=== PATIENT | male | born 1970 | race Caucasian/White ===

== ENCOUNTER → 2021-10-22 09:01 | Outpatient (BNVA) | payer OTHER, SELFPAY | PROVIDERS: PCP Internal Medicine; Visit Provider Psychiatry & Neurology Neurology | DX: G47.9 Sleep disorder, unspecified (principal); R06.83 Snoring; G89.29 Other chronic pain; M54.2 Cervicalgia; R20.2 Paresthesia of skin; M48.00 Spinal stenosis, site unspecified; E66.9 Obesity, unspecified | CPT/HCPCS: 99212 ==

== ENCOUNTER 2021-12-10 09:26 | Outpatient (REF) | payer OTHER, SELFPAY ==
--- NOTE | 2021-12-10 09:30 | EMG_ITS ---
Bilateral median and ulnar motor and sensory studies were performed. Bilateral radial sensory studies were performed and paraspinal muscles were tested with a needle. IMPRESSION: 1. Mild left median neuropathy across carpal tunnel, the right was within normal limits. 2. Mild left ulnar neuropathy across cubital tunnel, the right was normal. 3. Chronic left lower cervical radiculopathy. MD ADRIENNE Webb/CIRILO / [id number]
== END 2021-12-10 09:27 | disposition home or self-care (01) ==
LOC: HO.NEURO 09:26
PROVIDERS: Visit Provider Psychiatry & Neurology Neurology
DX: G89.29 Other chronic pain (principal); M48.00 Spinal stenosis, site unspecified; M54.2 Cervicalgia; R20.2 Paresthesia of skin
CPT/HCPCS: 95886; 95911

== ENCOUNTER 2025-03-20 10:37 | Outpatient (AMB) | payer OTHER, SELFPAY ==
[2025-03-20 11:18] VITALS: BP 129/82; PULSE 81; RESP 18; O2SAT 97; BMI 33.5
--- NOTE | 2025-03-20 11:18 | MHC.OFFVIS ---
Vital Signs 03/20/25 11:18 Height 5 ft 9 in Weight 227 lb BMI 33.5 BP 129/82 Blood Pressure Location Lt brachial Position Sitting Respiration 18 Pulse 81 Pulse Source Pulse Oximeter Pulse Oximetry (%) 97 Oxygen Delivery Method Room Air Intake Visit Reasons: Cervical spondylosis Medical Records Analyst Required: No Allergies aspirin Allergy (Verified 03/20/25 11:20) palpatation HPI Comments Details: Dhaval is very pleasant 54 years old gentleman who presents in my office with complains on severe pain in the left side of his neck and severe pain on the left side of his lower back. He reports that this pain started many years ago. For the cervical pain he went for surgery with Dr. Addie Gutierrez who performed ACDF of unknown level of this patient. Denies any help from this surgery. He received multiple injections in his lower back he does not know the nature of the injections they were 4 years ago. They also tried spinal cord stimulator on this patient [employer] model and they were not significantly helpful for his pain. Because of his pain he can not sleep normally can not do activities of daily living he can not take care of himself but he can not function normally. He is on permanent disability. He is ranging his pain 4 to 8/10 6 to 10/10 in the lower back. He completed his last session of physical therapy 3 weeks ago. He continues home exercise program. He denies any help from physical therapy. He had 12 sessions of physical therapy. He also tried chiropractic manipulations without help massage therapy without help acupuncture without help and 10s units without help. She had images of the cervical spine demonstrating spondylosis of the cervical spine and postlaminectomy syndrome of the cervical spine. His past medical history significant for headaches. His past surgical history significant for gastric bypass surgery. He also had ACDF as described above. He denies smoking cigarettes denies drinking alcohol he drinks caffeinated beverages 2-3 cups a day and he denies recreational drugs. [facility] Medical History (Updated 03/20/25 @ 12:09 by Yair Valdez MD) Accident while engaged in work-related activity Hyperlipidemia Obesity Spinal stenosis Depression Back pain Chronic neck pain Surgical History (Updated 11/03/21 @ 10:43 by Dorinda Nevarez) S/P gastric sleeve procedure History of ankle surgery H/O neck surgery Hx of cholecystectomy Family History (System 11/03/21 @ 10:43 by Dorinda Nevarez) Mother Diabetes Hyperlipidemia Father No problems noted. Social History (System 11/03/21 @ 10:43 by Dorinda Nevarez) Alcohol intake: never Patient Tobacco Use Status: Former Tobacco user Review of Systems Const All systems reviewed & are unremarkable except as noted in HPI and below ENT Reports Normal hearing present Neuro Reports Normal hearing present, Denies Abnormal speech present, Denies confusion and Denies Sensory deficit (Neuro) Psych Denies confusion Physical Exam Vital Signs: Last Vital Signs Pulse 81 03/20/25 11:18 Resp 18 03/20/25 11:18 BP 129/82 03/20/25 11:18 Pulse Ox 97 03/20/25 11:18 Oxygen Delivery Method Room Air 03/20/25 11:18 BMI result Body Mass Index 33.5 Const General: no acute distress; No confusion Nutritional Appearance: obese morbidly obese Orientation/consciousness: patient oriented x3 and No confusion Eyes General: appearance normal, both eyes and all related structures Pupils: Equal, round and reactive pupils present EOM: EOMs intact bilaterally Neck Other: Limited range of motion of the cervical spine. Unable to turn the head left or right. Tenderness on palpation in paraspinal and spinal region on the left. Axial compression aggravates the pain.extension of the neck backwards aggravates the pain. Chest Chest palpation & inspection: normal inspection of the chest Resp Effort & Inspection: normal respiratory effort, able to speak in complete sentences, normal respiratory pattern, no audible wheezes and no cough Cardio Jugular venous distension: no JVD GI Inspection: Yes normal to inspection Back/Spine/Pelvis Other: Able to stand on bilateral tiptoes in bilateral heels without difficulty. Flexing forward and flexing backwards aggravate the pain. Tenderness on palpation in projection of the left sacroiliac joint. Henry test is positive on the left. Gaenslen test is positive on the left. Pelvic compression test and pelvic distraction tests are both positive on the left. Neuro General: patient oriented x3, gait normal and No confusion Cranial nerves: Yes CN's II-XII intact bilaterally, Yes Equal, round and reactive pupils present, Yes Normal hearing present and Yes Ability to bilaterally elevate shoulders present Speech: No Abnormal speech present Gait exam (Neuro): Normal gait present Motor exam (neuro): 5/5 motor strength present throughout Sensory Exam: No Sensory deficit (Neuro) Extrem General: No pedal edema Psych Speech and movement: Normal speech and movement present Affect: normal affect Attitude: cooperative Thought process: Normal thought process present Thought content: Normal thought content present Insight: Good insight present (Psych) Judgement: Good judgement present (Psych) Assessment & Plan Assessment & Plan (1) Spondylosis of cervical joint without myelopathy: Code(s): M47.812 - Spondylosis without myelopathy or radiculopathy, cervical region Category: Medical (2) Postlaminectomy syndrome, cervical: Code(s): M96.1 - Postlaminectomy syndrome, not elsewhere classified Category: Medical (3) Chronic left sacroiliac joint pain: Code(s): M53.3 - Sacrococcygeal disorders, not elsewhere classified; G89.29 - Other chronic pain Category: Medical (4) Sacroiliitis: Code(s): M46.1 - Sacroiliitis, not elsewhere classified Category: Medical (5) Chronic pain syndrome: Code(s): G89.4 - Chronic pain syndrome Category: Medical Plan I will perform to diagnostic injections for this patient diagnostic injection 1. Will be left sacroiliac joint injection. After that I will assess the results of the left sacroiliac joint injection. Diagnostic injection 2. Will be cervical medial branch block on the left C 2, C3, C4, C5. I will see this patient after diagnostic left-sided injection as well. With good results of the diagnostic sacroiliac joint injection sacroiliac joint steroid injections could be tried to help his pain. With good results of the cervical medial branch block cervical left-sided sprint PNS could be tried to help the pain of this patient. Risks and benefits were carefully explained to this patient. Patient expressed understanding. He also requests me to help him to sleep at night. He reported that cyclobenzaprine in the past helped him significantly. I will prescribe him cyclobenzaprine 10 mg q.h.s. with 8 refills. Medications: New cyclobenzaprine 10 mg PO BEDTIME 30 tabs 8RF 30 days Coding Level of Care Code New Pt Level 3 (07282) Diagnoses Spondylosis of cervical joint without myelopathy M47.812 Postlaminectomy syndrome, cervical M96.1 Chronic left sacroiliac joint pain M53.3; G89.29 Sacroiliitis M46.1 Chronic pain syndrome G89.4
== END 2025-03-20 12:00 | disposition home or self-care (01) ==
LOC: HO.PMC 10:38
PROVIDERS: PCP Internal Medicine; Referring Provider Physician Assistant; Visit Provider Anesthesiology
DX: M47.812 Spondylosis without myelopathy or radiculopathy, cervical region (principal); M96.1 Postlaminectomy syndrome, not elsewhere classified; M53.3 Sacrococcygeal disorders, not elsewhere classified; G89.29 Other chronic pain; M46.1 Sacroiliitis, not elsewhere classified; G89.4 Chronic pain syndrome
CPT/HCPCS: 99203

== ENCOUNTER → 2025-03-20 10:37 | Outpatient (BNVA) | payer OTHER, SELFPAY | PROVIDERS: PCP Internal Medicine; Referring Provider Physician Assistant; Visit Provider Anesthesiology | DX: M47.812 Spondylosis without myelopathy or radiculopathy, cervical region (principal); M53.3 Sacrococcygeal disorders, not elsewhere classified; M46.1 Sacroiliitis, not elsewhere classified; G89.4 Chronic pain syndrome | CPT/HCPCS: 99202 ==